=== PATIENT | male | born 1940 | race African-American/Black ===

== ENCOUNTER 2021-07-16 12:59 | Outpatient (CLI) | payer MEDICARE ==
--- NOTE | 2021-07-16 15:15 | XRay Report ---
RIGHT KNEE 2 VIEWS INDICATION / CLINICAL INFORMATION: PAIN IN RIGHT KNEE COMPARISON: None available. FINDINGS: BONES / JOINT(S): No acute fracture or subluxation. Minimal tricompartment degenerative arthrosis. No significant joint effusion. 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 SOFT TISSUES: No significant abnormality. ADDITIONAL FINDINGS: None. Signer Name: Yves Escamilla MD Signed: 07/16/2021 3:11 PM Workstation Name: [id number]
== END 2021-07-16 13:00 | disposition home or self-care (01) ==
LOC: XRAY 12:59
PROVIDERS: ATTEND Orthopaedic Surgery
DX: M17.11 Unilateral primary osteoarthritis, right knee (principal)